=== PATIENT | male | born 1980 | race Caucasian/White ===

== ENCOUNTER 2022-11-04 00:54 | Emergency (ER) | payer BC, MEDICAID ==
[~2022-11-04] VITALS: Ht 167.6 cm; Wt 78.0 kg
[2022-11-04 00:59] VITALS: O2SAT 100
[2022-11-04] MEDS ORDERED: NITROGLYCERIN 0.4MG TABLET SL SL PRN (01:30)
[2022-11-04] MEDS ORDERED: DILTIAZEM HCL 5MG/ML 5ML VIAL IV ONE (01:30)
[2022-11-04] MEDS ORDERED: ASPIRIN 81MG TABLET PO ONE (01:30)
[2022-11-04 01:37] LABS: BASOPHILS % 0.8 % (0.0-2.0); EOSINOPHILS % 1.5 % (0.0-5.0); HEMATOCRIT. 48.1 % (42.0-52.0); HEMOGLOBIN. 16.5 g/dL (14.0-18.0); LYMPHOCYTES % 33.5 % (20.0-50.0); MEAN CORPUSCULAR HEMOGLOBIN 30.5 pg (28.0-32.0); MEAN CORPUSCULAR VOLUME 88.6 fL (80.0-94.0); MONOCYTES % 8.5 % (2.0-8.0); NEUTROPHILS % 55.7 % (40.0-76.0); PLATELET 242 x1000/uL (130-400); RED BLOOD CELL COUNT 5.43 mill/uL (4.7-6.1); RED CELL DISTRIBUTION WIDTH 14.1 % (11.6-14.6)
[2022-11-04 01:41] LABS: CHLORIDE 114 mEq/L (98-107)
[2022-11-04 01:45] LABS: D-DIMER 0.23 mg/L FEU (<0.50); PARTIAL THROMBOPLASTIN TIME 27.8 sec (23.4-31.0); PROTHROMBIN TIME 10.3 sec (9.6-11.0)
[2022-11-04 02:05] VITALS: BP 98/68; RESP 15; TEMP 98
[2022-11-04] MEDS ORDERED: DILTIAZEM HCL 60MG TABLET PO ONE (02:30)
[2022-11-04 03:42] VITALS: PULSE 61
[2022-11-04] MEDS ORDERED: ONDANSETRON HCL 4MG/2ML INJ IV PRN (05:15)
[2022-11-04] MEDS ORDERED: ACETAMINOPHEN 325MG TABLET PO PRN (05:15)
[2022-11-04] MEDS ORDERED: DOCUSATE SODIUM 100MG CAPSULE PO PRN (05:15)
[2022-11-04] MEDS ORDERED: CLONIDINE 0.1MG TABLET PO PRN (05:15)
[2022-11-04] MEDS ORDERED: DEXTROSE 50% WATER 50ML SYRINGE IV PRN (05:15)
[2022-11-04] MEDS ORDERED: GUAIFENESIN 200MG/10ML SUGAR FREE UDC PO PRN (05:15)
[2022-11-04] MEDS ORDERED: MAGNESIUM/ALUMINUM HYDROXIDE/SIMETHICONE 30ML UDC PO PRN (05:15)
[2022-11-04] MEDS ORDERED: IPRATROPIUM/ALBUTEROL 0.5-3(2.5)MG/3ML NEB HHN PRN (05:15)
[2022-11-04] MEDS ORDERED: INSULIN LISPRO 100 UNITS/ML SUBCUT SCH (08:20)
[2022-11-04] MEDS ORDERED: ENOXAPARIN 40MG/0.4ML SYR SUBCUT SCH (09:00)
[2022-11-04] MEDS ORDERED: BLOOD SUGAR DIAGNOSTIC STRIP TEST SCH (09:00)
[2022-11-04] MEDS ORDERED: FAMOTIDINE 20MG TABLET PO SCH (21:00)
== END 2022-11-04 08:09 | disposition left against medical advice (07) ==
LOC: ER 00:54 → CANBEDREQ 11-06 20:32
DX: R73.9 Hyperglycemia, unspecified (principal); I48.91 Unspecified atrial fibrillation; R07.89 Other chest pain; R00.2 Palpitations
CPT/HCPCS: 36415; 71045; 80053; 83036; 83880; 84443; 84484; 85025; 85379; 85610; 85730; 93005; 96374; 99291; J3490; Z7610